=== PATIENT | female | born 1935 | race African-American/Black ===

== ENCOUNTER 2017-02-14 19:02 | Emergency (ER) | payer MEDICARE ==
[~2017-02-14 19:02] MED LIST: ARTHRITIS TYLENOL PO; ASPIRIN PO; ATIVAN PO; CENTRUM SILVER PO; HYZAAR 100-25 T1 TAB PO; LORTAB 10-5001 EACH PO; REMERON PO; SYNTHROID PO; VICODIN 5/1 TAB 5/50 PO; VICODIN PO
== END 2017-02-14 21:30 | disposition home or self-care (01) ==
LOC: CED 19:02
DX: F32.9 Major depressive disorder, single episode, unspecified (principal); M54.81 Occipital neuralgia; Z88.8 Allergy status to other drugs, medicaments and biological substances; F41.9 Anxiety disorder, unspecified
CPT/HCPCS: 85652; 99283

== ENCOUNTER → 2017-03-18 | Outpatient (CLI) | payer MEDICARE, BC ==
--- NOTE | ~2017-03-18 | CT71 ---
[facility] A Service of [facility] RADIOLOGY TEXT RESULTS PATIENT: FLORY LILLY LOCATION: [facility] : 33 UNIT #: [id number] AGE: [address]: Virgilio Farmer MD SEX: F ORDER DR: [id number] [facility] [address] [place], [place] [address] [id number] O MR#: [id number] [facility] #: [id number] NAME: FLORY LILLY : 1935 SEX: F STUDY DATE/TIME: 03/18/2017 13:32 UNIT: [facility] ROOM: STUDY DESCRIPTION: CT Head Wo Contrast Attending Physician: Virgilio Farmer M.D. Ordering Physician: Virgilio Farmer M.D. Primary Care Physician: Virgilio Farmer M.D. MEDICAL IMAGING REPORT This report is preliminary unless electronic signature is present EXAM Noncontrast CT head 03/18/2017 HISTORY Occipital neuralgia of the right side intermittently for 1 month. No known injury. COMPARISON None. TECHNIQUE This CT exam was performed with one or more of the following radiation dose reduction techniques: automatic exposure control, adjustment of mA and/or kV according to patient size, and iterative reconstruction. FINDINGS Mild age-appropriate parenchymal atrophy is present. No evidence of acute or evolving infarct. No mass lesion, mass effect, midline shift or intracranial hemorrhage. Normal ventricular configuration. Paranasal sinuses and mastoid air cells are clear. Ill-defined 9 x 12 mm lucent focus within the occipital calvaria to the right of midline (series 4, image 14). IMPRESSION 1. No acute intracranial findings. 2. 9 x 12 mm lucent focus within the right occipital calvaria is nonspecific. Both benign and malignant etiologies are in the differential. Correlate with patient's known clinical history. Bone scan may prove helpful for additional evaluation if deemed clinically appropriate for this patient. [facility] A Service [facility] RADIOLOGY TEXT RESULTS PATIENT: FLORY LILLY LOCATION: [facility] : 33 UNIT #: [id number] AGE: [address]: Virgilio Farmer MD SEX: F ORDER DR: Dictated by... Josie Oviedo M.D. THIS IS AN ELECTRONICALLY VERIFIED REPORT Josie Oviedo M.D. at 03/19/2017 8:38 AM TRACE/javon TD: 03/18/2017 18:59 JOB #: [id number] MEDICAL IMAGING REPORT Page 1 of 1 COPY
== END | disposition home or self-care (01) ==
LOC: CCAT 13:11
DX: M54.81 Occipital neuralgia (principal)
CPT/HCPCS: 70450